=== PATIENT | male | born 1990 | race Caucasian/White ===

== ENCOUNTER 2017-06-11 14:24 | Observation (INO) | payer OTHER ==
[2017-06-11 14:35] VITALS: BMI 25.0
[2017-06-11] MEDS ORDERED: ONDANSETRON 4 MG/2 ML VIAL IVPUSH ONE ×2 (14:55→15:08)
[2017-06-11] MEDS ORDERED: ONDANSETRON 4 MG/2 ML VIAL ONE (14:56)
[2017-06-11] MEDS ORDERED: SODIUM CHLORIDE 0.9% 1000 ML INFUS.BAG IV ONE (15:08)
--- NOTE | 2017-06-11 15:18 | PDOC ---
History of Present Illness - General Chief Complaint: Lightheaded Stated Complaint: VOMITING/DIARRHEA Time Seen by Provider: 06/11/17 14:41 History Source: Patient Exam Limitations: No Limitations - History of Present Illness Initial Comments: 06/11/17 15:21 The patient is a 26M with a PMH of ESRD on dialysis (just finished dialysis this morning at 4am) who is complaining of weakness, dizziness, nausea, vomiting, and diarrhea. His weakness and dizziness started after dialysis at 4 am. His nausea, vomiting, and diarrhea started at 10am this morning. He described the dizziness as lightheadedness and not vertiginous. He is also complaining of numbness in his legs. He admits to having anxiety which may be worsening his present illness. No sick contacts, no recent travel. Soc: does not smoke, drink, or use drugs All: none Extras Casting Director: Coretta Sullivan MD Past History - Past Medical History Allergies/Adverse Reactions: Allergies Allergy/AdvReac Type Severity Reaction Status Date / Time No Known Allergies Allergy Verified 06/11/17 14:32 Home Medications: Ambulatory Orders Albuterol Sulfate Inhaler - [Ventolin HFA Inhaler -] 1 - 2 inh PO ASDIR Sevelamer Carbonate [Renvela -] 800 mg PO ASDIR 03/22/15 Omeprazole [Prilosec (RX)] 20 mg PO DAILY #30 capsule 05/06/15 Amlodipine Besylate 10 mg PO DAILY 06/11/17 Asthma: Yes Dialysis: Yes () Disorders: Yes (esrd) HTN: Yes Suicide Attempt (Hx): No - Surgical History Abdominal Surgery: Yes (BLADDER SX A CHILD) - Immunization History Immunization Up to Date: Yes - Psycho/Social/Smoking Cessation Hx Anxiety: No Suicidal Ideation: No Smoking Status: No Smoking History: Never smoked Have you smoked in the past 12 months: No Number of Cigarettes Smoked Daily: 0 Cigars Per Day: 0 Hx Alcohol Use: No Drug/Substance Use Hx: No Substance Use Type: None Review of Systems - Review of Systems Able to Perform ROS?: Yes Is the patient limited Wolof proficient: No Constitutional: Yes: Chills. No: Fever HEENTM: No: Blurred Vision Respiratory: Yes: Shortness of Breath. No: Cough Cardiac (ROS): Yes: Lightheadedness. No: Chest Pain ABD/GI: No: Other (abd pain) Neurological: Yes: Tingling (in legs b/l). No: Numbness, Weakness *Physical Exam - Vital Signs Last Vital Signs Temp Pulse Resp BP Pulse Ox 98.5 F 106 H 19 138/78 100 06/11/17 14:32 06/11/17 14:32 06/11/17 14:32 06/11/17 14:32 06/11/17 14:32 - Physical Exam General Appearance: Yes: Nourished, Appropriately Dressed HEENT: positive: Normal Voice, Hearing Grossly Normal Respiratory/Chest: positive: Lungs Clear, Normal Breath Sounds. negative: Chest Tender, Respiratory Distress, Accessory Muscle Use, Labored Respiration, Rapid RR, Paradoxal Breathing, Crackles, Rales, Rhonchi Cardiovascular: positive: Regular Rhythm, Regular Rate, S1, S2. negative: Diastolic Murmur, Systolic Murmur Gastrointestinal/Abdominal: positive: Tender (Tenderness to deep palpation over LUQ ), Flat, Soft. negative: Distended, Guarding, Rebound, Mass Musculoskeletal: negative: CVA Tenderness, CVA Tenderness (R), CVA Tenderness (L ) Integumentary: positive: Dry, Warm. negative: Pale, Cold, Clammy, Diaphoresis Neurologic: positive: dental surgeon II-XII NML intact, Fully Oriented, Alert, Normal Mood/ Affect, Normal Response, Motor Strength 5/5, Respond to painful stimul, Responsive. negative: Abnormal Cranial NS, EOM Palsy, Facial Droop, Numbness, Sensory Deficit, Confused, Disoriented, Depressed Affect Heart Score/ECG Review - ECG Impressions Comment:: 06/11/17 15:27 NSR. Peaked t waves. Improved from EKG on march 22, 2015. ED Treatment Course - LABORATORY CBC & Chemistry Diagram: 06/12/17 05:48 06/12/17 05:48 Medical Decision Making - Medical Decision Making 06/11/17 16:50 The patient is a 26M with a PMH of ESRD on dialysis, HTN, and asthma who presented with GI symptoms and weakness. I have ordered basic labs. K was 6.1. I gave him calcium gluconate, insulin, and dextrose and IVF. On reassessment he states he is feeling "a little better". 06/11/17 19:14 Repeat K is 4.7. Reassessment shows that the patient is able to ambulate and is feeling better. Will discuss with hospitalist for obs. 06/11/17 19:27 Patient signed out to night team. *DC/Admit/Observation/Transfer Diagnosis at time of Disposition: History of hyperkalemia, ESRD (end stage renal disease) Nausea & vomiting Qualifiers: Vomiting type: unspecified Vomiting Intractability: non-intractable Qualified Code(s): R11.2 - Nausea with vomiting, unspecified - Discharge Dispostion Disposition: HOME Condition at time of disposition: Stable
[2017-06-11 15:45] LABS: ALBUMIN 4.4 g/dl (3.4-5.0); ANION GAP 11 (8-16); CALCIUM 9.5 mg/dL (8.5-10.1); CO2 26 mmol/L (21-32); CREATININE 7.3 mg/dL (0.7-1.3); GLUCOSE,RANDOM 93 mg/dL (74-106); SGOT/AST 11 U/L (15-37); SGPT/ALT 19 U/L (12-78)
[2017-06-11 15:47] LABS: ALK PHOS 141 U/L (45-117); BILIRUBIN,TOTAL 0.7 mg/dL (0.2-1.0); TOT PROT 8.1 g/dl (6.4-8.2)
[2017-06-11 15:50] LABS: BASOPHIL 0.3 % (0-2.0); EOSINOPHIL 3.6 % (0-4.5); MCH 31.2 pg (25.7-33.7); MCHC 33.8 g/dl (32.0-35.9); MEAN CELL VOLUME 92.3 fl (80-96); MEAN PLT VOLUME 9.2 fl (7.5-11.1); NEUTROPHILS 87.5 % (42.8-82.8); PLATELET COUNT 180 K/MM3 (134-434); RDW 13.7 % (11.9-15.9); WHITE BLOOD COUNT 12.9 K/mm3 (4.0-10.0)
[2017-06-11] MEDS ORDERED: CALCIUM GLUCONATE 10% - 1,000 MG/10 ML VIAL IVPB ONE (15:50)
[2017-06-11] MEDS ORDERED: DEXTROSE 50%-WATER - 25 GM/50 ML VIAL IVPUSH ONE (16:06)
[2017-06-11] MEDS ORDERED: INSULIN REGULAR HUMAN 100 UNITS/ML *VIAL IVPUSH ONE (16:07)
[2017-06-11] MEDS ORDERED: SODIUM BICARBONATE 8.4% 50 MEQ/50 ML DISP.SYRIN IVPUSH ONE (16:08)
[2017-06-11] MEDS ORDERED: CALCIUM GLUCONATE 10% - 1,000 MG/10 ML VIAL ONE (16:21)
[2017-06-11] MEDS ORDERED: SODIUM BICARBONATE 8.4% - 50 ML ONE (16:21)
[2017-06-11] MEDS ORDERED: INSULIN REGULAR HUMAN 100 UNITS/ML *VIAL ONE (16:21)
[2017-06-11] MEDS ORDERED: DEXTROSE 50%-WATER 50 ML DISP.SYRIN ONE ×2 (16:21→16:23)
[2017-06-11 18:38] LABS: ALBUMIN 3.8 g/dl (3.4-5.0); ANION GAP 9 (8-16); BILIRUBIN,TOTAL 0.6 mg/dL (0.2-1.0); CALCIUM 9.7 mg/dL (8.5-10.1); CO2 27 mmol/L (21-32); GLUCOSE,RANDOM 71 mg/dL (74-106); SGOT/AST 7 U/L (15-37); SGPT/ALT 18 U/L (12-78); TOT PROT 7.2 g/dl (6.4-8.2)
[2017-06-11 18:43] LABS: ALK PHOS 119 U/L (45-117); CREATININE 7.4 mg/dL (0.7-1.3)
--- NOTE | 2017-06-11 19:04 | PDOC ---
Attending Attestation - Resident Resident Name: DarylmonroechristelMario - ED Attending Attestation I have performed the following: I have examined & evaluated the patient, The case was reviewed & discussed with the resident, I agree w/resident's findings & plan, Exceptions are as noted - HPI HPI: 06/11/17 19:04 26yo M hx ESRD (HD MWF) p/w nausea, vomiting, and diarrhea since this afternoon. Pt had a full session of HD this morning with no complications and began to feel lightheaded when he got home. He reports multiple episodes of concurrent vomiting and diarrhea. Also reports cramping in LE that he frequently gets after HD. Denies fevers. Denies CP, SOB, abd pain, headache, focal weakness or numbness. - Physicial Exam PE: 06/11/17 19:03 GENERAL: Awake, alert, and fully oriented, in no acute distress HEAD: No signs of trauma EYES: PERRLA, EOMI, sclera anicteric, conjunctiva clear ENT: Auricles normal inspection, hearing grossly normal, nares patent, oropharynx clear without exudates. dry MM NECK: Normal ROM, supple, no lymphadenopathy, JVD, or masses LUNGS: Breath sounds equal, clear to auscultation bilaterally. No wheezes, and no crackles HEART: tachy 106, normal S1 and S2, no murmurs, rubs or gallops ABDOMEN: Soft, nontender, normoactive bowel sounds. No guarding, no rebound. No masses EXTREMITIES: Normal range of motion, no edema. No clubbing or cyanosis. No cords, erythema, or tenderness NEUROLOGICAL: Normal speech, cranial nerves intact, negative pronator drift, 5/ 5 strength in all 4 extremities, normal sensation to light touch in all 4 extremities, normal cerebellar exam, normal gait, normal reflexes and tone SKIN: Warm, Dry, normal turgor, no rashes or lesions noted. - Medical Decision Making 06/11/17 16:09 26yo M hx ESRD p/w N/V/D and lightheadness since this morning. Pt tachycardic on arrival and exam with dry MM. Presentation c/f dehydration, with possible electrolyte abnormalities in the setting of a GI viral illness. -antiemetics -IVF -labs -reassess 06/11/17 16:26 Pt found to be hyperkalemic to 6.1 despite full session of HD in the morning. Pt given bicarb, calcium, dextrose, and insulin. Will repeat BMP and admit for obs as it is unclear why pt is hyperkalemic despite compliance with HD.
--- NOTE | 2017-06-11 19:46 | PDOC ---
*Physical Exam - Vital Signs Last Vital Signs Temp Pulse Resp BP Pulse Ox 98.5 F 99 H 20 149/85 100 06/11/17 14:32 06/11/17 16:50 06/11/17 16:50 06/11/17 16:50 06/11/17 16:50 06/11/17 19:38 Care of this patient was transferred to [facility] from Dr. Siddiqi at 1900 hrs. He was seen by Dr. Siddiqi in conjunction with the resident. Patient is a hemodialysis patient and having [facility] he developed nausea vomiting diarrhea came in for the symptoms. He was found to have an elevated potassium of 6.1. He was given treatment for his potassium bicarbonate, insulin, dextrose and fluid. A repeat potassium was 4.7. Patient is without further nausea vomiting and diarrhea here in the emergency room however a overnight observation and treatment potassium was rising and he would benefit from additional observation to make sure he is able to tolerate by mouth's and has no further diarrhea for tomorrow. I discussed with the admitting resident and as well evaluating patient in the ER for overnight observation status. ED Treatment Course - LABORATORY CBC & Chemistry Diagram: 06/11/17 15:15 06/11/17 18:00 - ADDITIONAL ORDERS Additional order review: Laboratory Results 06/11/17 06/11/17 06/11/17 18:21 18:00 15:15 Sodium 139 135 L Potassium 4.7 D 6.1 H* D Chloride 103 98 Carbon Dioxide 27 26 Anion Gap 9 11 BUN 32 H 28 H D Creatinine 7.4 H 7.3 H D Creat Clearance w eGFR 9.04 9.18 POC Glucometer 82.30248 Random Glucose 71 L D 93 Calcium 9.7 9.5 Total Bilirubin 0.6 0.7 D AST 7 L D 11 L D ALT 18 19 Alkaline Phosphatase 119 H 141 H D Total Protein 7.2 8.1 Albumin 3.8 4.4 06/11/17 06/11/17 18:21 15:15 RBC 4.71 D MCV 92.3 MCHC 33.8 RDW 13.7 MPV 9.2 Neutrophils % 87.5 H D Lymphocytes % 3.6 L D Monocytes % 5.0 Eosinophils % 3.6 Basophils % 0.3 POC Glucometer 82.01544 - Medications Given in the ED: ED Medications Discontinued Medications Generic Name Dose Route Start Last Admin Trade Name Freq PRN Reason Stop Dose Admin Calcium Gluconate 1,000 mg 06/11/17 15:50 06/11/17 16:42 Calcium Gluconate 10% - IVPB 06/11/17 15:51 1,000 mg ONCE ONE Administration Dextrose 50 gm 06/11/17 16:06 06/11/17 16:41 D50w (Vial) - IVPUSH 06/11/17 16:07 50 gm NOW ONE Administration Insulin Human Regular 5 units 06/11/17 16:07 06/11/17 16:41 Novolin R Vial *For Ivpush Or Iv Drip Only* IVPUSH 06/11/17 16:08 5 unit ONCE ONE Administration Ondansetron HCl 4 mg 06/11/17 14:55 06/11/17 15:10 Zofran Injection IVPUSH 06/11/17 14:56 4 mg ONCE ONE Administration Ondansetron HCl 4 mg 06/11/17 15:08 06/11/17 16:52 Zofran Injection IVPUSH 06/11/17 15:09 Not Given ONCE ONE Sodium Bicarbonate 50 meq 06/11/17 16:08 06/11/17 16:42 Sodium Bicarbonate 8.4% - IVPUSH 06/11/17 16:09 50 meq ONCE ONE Administration Sodium Chloride 500 ml 06/11/17 15:08 06/11/17 15:15 Normal Saline - IV 06/11/17 15:09 500 ml ONCE ONE Administration *DC/Admit/Observation/Transfer Diagnosis at time of Disposition: History of hyperkalemia, End-stage renal disease Nausea and vomiting Qualifiers: Vomiting type: unspecified Vomiting Intractability: non-intractable Qualified Code(s): R11.2 - Nausea with vomiting, unspecified - Discharge Dispostion Admit: Yes
[2017-06-11 20:06] LABS: URINE APPEARANCE CLEAR; URINE BILIRUBIN NEGATIVE (NEGATIVE); URINE BLOOD NEGATIVE (NEGATIVE); URINE COLOR STRAW; URINE GLUCOSE (UA) 3+ (NEGATIVE); URINE KETONE NEGATIVE (NEGATIVE); URINE LEUK ESTERASE NEGATIVE (NEGATIVE); URINE NITRITE NEGATIVE (NEGATIVE); URINE UROBILINOGEN NEGATIVE mg/dL (0.2-1.0)
[2017-06-11 20:19] LABS: URINE PROTEIN 2+ (NEGATIVE)
[2017-06-11 20:38] LABS: URINE BACTERIA RARE /hpf (NONE SEEN); URINE RBC <1 /hpf (0-3); URINE WBC 1 /hpf (3-5)
--- NOTE | 2017-06-11 20:58 | HP ---
CHIEF COMPLAINT: Nausea, Diarrhea PCP: None Organizational Development Consultant: Coretta Kauffman HISTORY OF PRESENT ILLNESS: Patient is a 26 year old male with a history of ESRD (Dialysis since 2010), Asthma, and HTN presented to the ED because of Nausea and diarrhea he experienced at 4am earlier that morning post-dialysis. He said he went home from dialysis nauseas and weak and went to sleep. Around 9am he woke up and felt rumbling in his abdomen and weakness. Nothing made it worse and nothing made it better. He then vomited pink brown emesis and had dark brown diarrhea right after. He says he experienced these symptoms before after having dialysis years ago. He also complained of a dry cough and shortness of breath that began after dialysis. He does not relate the cough and SOB to his asthma. Patient denies headache, fevers, rash, urinary symptoms, decreased appetite and weight loss. ER course was notable for: (1) EKG- peaked T waves (2) X-Ray: unremarkable Recent Travel: None PAST MEDICAL HISTORY: Asthma, HTN, ESRD (started dialysis 2010) PAST SURGICAL HISTORY: AV Fistula in left hand Social History: Smoking: Denies Alcohol: Denies Drugs: Denies Family History: N/A Allergies No Known Allergies Allergy (Verified 06/11/17 14:32) HOME MEDICATIONS: Home Medications Medication Instructions Recorded Albuterol Sulfate Inhaler - 1 - 2 inh PO ASDIR 01/31/14 [Ventolin HFA Inhaler -] Sevelamer Carbonate [Renvela] 800 mg PO ASDIR 03/22/15 Omeprazole [Prilosec (RX)] 20 mg PO DAILY #30 capsule 05/06/15 Amlodipine Besylate 10 mg PO DAILY 06/11/17 REVIEW OF SYSTEMS CONSTITUTIONAL: Absent: fever, chills, diaphoresis, generalized weakness, malaise, loss of appetite, weight change HEENT: Absent: rhinorrhea, nasal congestion, throat pain, throat swelling, difficulty swallowing, mouth swelling, ear pain, eye pain, visual changes CARDIOVASCULAR: Absent: chest pain, syncope, palpitations, irregular heart rate, lightheadedness , peripheral edema RESPIRATORY: Absent: cough, shortness of breath, dyspnea with exertion, orthopnea, wheezing, stridor, hemoptysis GASTROINTESTINAL: nausea, vomiting, diarrhea Absent: abdominal pain, abdominal distension, constipation, melena, hematochezia GENITOURINARY: Absent: dysuria, frequency, urgency, hesitancy, hematuria, flank pain, genital pain MUSCULOSKELETAL: Absent: myalgia, arthralgia, joint swelling, back pain, neck pain SKIN: Absent: rash, itching, pallor HEMATOLOGIC/IMMUNOLOGIC: Absent: easy bleeding, easy bruising, lymphadenopathy, frequent infections ENDOCRINE: Absent: unexplained weight gain, unexplained weight loss, heat intolerance, cold intolerance NEUROLOGIC: Absent: headache, focal weakness or paresthesias, dizziness, unsteady gait, seizure, mental status changes, bladder or bowel incontinence PSYCHIATRIC: Absent: anxiety, depression, suicidal or homicidal ideation, hallucinations. PHYSICAL EXAMINATION Vital Signs - 24 hr 06/11/17 06/11/17 14:32 16:50 Temperature 98.5 F Pulse Rate 106 H Pulse Rate [ 99 H Left Radial] Respiratory 19 20 Rate Blood Pressure 138/78 Blood Pressure 149/85 [Right Arm] O2 Sat by Pulse 100 100 Oximetry (%) GENERAL: Awake, alert, and fully oriented, in no acute distress. HEAD: Normal with no signs of trauma. EYES: Pupils equal, round and reactive to light, extraocular movements intact, sclera anicteric, conjunctiva clear. EARS, NOSE, THROAT: oropharynx clear without exudates. Moist mucous membranes. NECK: Normal range of motion, supple without lymphadenopathy, JVD, or masses. LUNGS: Breath sounds equal, clear to auscultation bilaterally. No wheezes, and no crackles. HEART: Regular rate and rhythm, normal S1 and S2 without murmur, rub or gallop. ABDOMEN: Soft, isabella-umbical tenderness to palpation, not distended, normoactive bowel sounds, no guarding, no rebound, no masses. No hepatomegaly or splenomegaly. Transverse scar on lower abdomen from surgery. MUSCULOSKELETAL: Normal range of motion at all joints. No bony deformities or tenderness. No CVA tenderness. UPPER EXTREMITIES: left hand AV fistula: no bruits, 2+ pulses, warm, well- perfused. No cyanosis. No clubbing. No peripheral edema. LOWER EXTREMITIES: 2+ pulses, warm, well-perfused. No calf tenderness. No peripheral edema. PSYCHIATRIC: Cooperative. Good eye contact. Appropriate mood and affect. SKIN: Warm, dry, normal turgor, no rashes or lesions noted, normal capillary refill. Laboratory Results - last 24 hr 06/11/17 06/11/17 06/11/17 15:15 15:15 18:00 WBC 12.9 H D RBC 4.71 D Hgb 14.7 D Hct 43.4 D MCV 92.3 MCH 31.2 MCHC 33.8 RDW 13.7 Plt Count 180 D MPV 9.2 Neutrophils % 87.5 H D Lymphocytes % 3.6 L D Monocytes % 5.0 Eosinophils % 3.6 Basophils % 0.3 Sodium 135 L 139 Potassium 6.1 H* D 4.7 D Chloride 98 103 Carbon Dioxide 26 27 Anion Gap 11 9 BUN 28 H D 32 H Creatinine 7.3 H D 7.4 H Creat Clearance w eGFR 9.18 9.04 POC Glucometer Random Glucose 93 71 L D Calcium 9.5 9.7 Total Bilirubin 0.7 D 0.6 AST 11 L D 7 L D ALT 19 18 Alkaline Phosphatase 141 H D 119 H Total Protein 8.1 7.2 Albumin 4.4 3.8 Urine Color Urine Appearance Urine pH Urine Protein Urine Glucose (UA) Urine Ketones Urine Blood Urine Nitrite Urine Bilirubin Urine Urobilinogen 06/11/17 06/11/17 18:21 19:50 WBC RBC Hgb Hct MCV MCH MCHC RDW Plt Count MPV Neutrophils % Lymphocytes % Monocytes % Eosinophils % Basophils % Sodium Potassium Chloride Carbon Dioxide Anion Gap BUN Creatinine Creat Clearance w eGFR POC Glucometer 82.73664 Random Glucose Calcium Total Bilirubin AST ALT Alkaline Phosphatase Total Protein Albumin Urine Color Straw Urine Appearance Clear Urine pH 9.0 H Urine Protein 2+ H Urine Glucose (UA) 3+ H Urine Ketones Negative Urine Blood Negative Urine Nitrite Negative Urine Bilirubin Negative Urine Urobilinogen Negative Chest X Ray: Unremarkable. No evidence of acute lung disease. ASSESSMENT/PLAN: Patient is a 26 year old male with a history of ESRD (Dialysis since 2010), Asthma, and HTN presented to the ED because of Nausea and diarrhea and was found to have Hyperkalemia (6.1) #Hyperkalemia secondary to ESRD -On Dialysis, Tuesdays , Saturdays -BUN 32, Creatinine 7.4 -Patient does not know his baseline creatinine, old charts shows history of 7.8 creatinine -Peaked T waves on EKG (no significant change from last one in February) -In ER : Given D50, Insulin 10UNITs, Calcium gluconate & Sodium Barcarb -Potassium improved. 6.1---> 4.7 -BMP ordered for tonight and AM -Will f/U labs in the morning. -Tele for cardiac monitoring -On Dialysis, Tuesdays , Saturdays -BUN 32, Creatinine 7.4 -Patient does not know his baseline creatinine, old charts shows history of 7.8 creatinine #HTN -Continue Amplodipine 10mg #History of Asthma -Albuterol PRN, will order if needed FEN: -No fluids at this time -Hyperkalemia, currently WNL, will continue to monitor -Renal Diet DVT PPX: -Early Ambulation Visit type - Emergency Visit Emergency Visit: Yes ED Registration Date: 06/11/17 Care time: The patient presented to the Emergency Department on the above date and was hospitalized for further evaluation of their emergent condition. - New Patient This patient is new to me today: Yes Date on this admission: 06/12/17 - Critical Care Critical Care patient: No
[2017-06-11 21:58] LABS: ANION GAP 10 (8-16); CO2 26 mmol/L (21-32); GLUCOSE,RANDOM 123 mg/dL (74-106)
[2017-06-11 22:04] LABS: CREATININE 8.2 mg/dL (0.7-1.3)
--- NOTE | 2017-06-12 00:49 | PN ---
Teaching Attending Note Name of Resident: Akosua Albarran ATTENDING PHYSICIAN STATEMENT I saw and evaluated the patient. I reviewed the resident's note and discussed the case with the resident. I agree with the resident's findings and plan as documented. SUBJECTIVE: 26 y/o M presented to ED c/o nausea an diarrhea after hemodialysis, also c/o cough and SOB after HD. Denies fever, chills, headache, chest pain or palpitations. OBJECTIVE: On examination, A&Ox3 in NAD. HEENT:PERRLA, EOMI, MMM Lungs CTA CVS: RRR, S1,S2 Abd: Soft, NT, ND, BS+, no organomegaly Ext: Left AV fistula CBCD WBC 12.9 K/mm3 (4.0-10.0) H D 06/11/17 15:15 RBC 4.71 M/mm3 (4.00-5.60) D 06/11/17 15:15 Hgb 14.7 GM/dL (11.7-16.9) D 06/11/17 15:15 Hct 43.4 % (35.4-49) D 06/11/17 15:15 MCV 92.3 fl (80-96) 06/11/17 15:15 MCHC 33.8 g/dl (32.0-35.9) 06/11/17 15:15 RDW 13.7 % (11.9-15.9) 06/11/17 15:15 Plt Count 180 K/MM3 (134-434) D 06/11/17 15:15 MPV 9.2 fl (7.5-11.1) 06/11/17 15:15 CMP Sodium 137 mmol/L (136-145) 06/11/17 21:17 Potassium 4.8 mmol/L (3.5-5.1) 06/11/17 21:17 Chloride 101 mmol/L (98-107) 06/11/17 21:17 Carbon Dioxide 26 mmol/L (21-32) 06/11/17 21:17 Anion Gap 10 (8-16) 06/11/17 21:17 BUN 34 mg/dL (7-18) H 06/11/17 21:17 Creatinine 8.2 mg/dL (0.7-1.3) H* 06/11/17 21:17 Creat Clearance w eGFR 9.04 (>60) 06/11/17 18:00 Random Glucose 123 mg/dL (74-106) H D 06/11/17 21:17 Calcium 9.0 mg/dL (8.5-10.1) 06/11/17 21:17 Total Bilirubin 0.6 mg/dL (0.2-1.0) 06/11/17 18:00 AST 7 U/L (15-37) L D 06/11/17 18:00 ALT 18 U/L (12-78) 06/11/17 18:00 Alkaline Phosphatase 119 U/L (45-117) H 06/11/17 18:00 Total Protein 7.2 g/dl (6.4-8.2) 06/11/17 18:00 Albumin 3.8 g/dl (3.4-5.0) 06/11/17 18:00 ASSESSMENT AND PLAN: Hyperkalemia, ESRD with EKG changes- hyperkalemia cocktail given Repeat BMP in am joy operator
[2017-06-12] MEDS ORDERED: SODIUM CHLORIDE 1,000 ML IV SCH (05:15)
[2017-06-12 06:20] VITALS: TEMP 97.5
[2017-06-12 07:58] LABS: ANION GAP 13 (8-16); CALCIUM 9.1 mg/dL (8.5-10.1); CO2 24 mmol/L (21-32); GLUCOSE,RANDOM 84 mg/dL (74-106); MAGNESIUM 2.1 mg/dL (1.8-2.4); PHOSPHOROUS 5.9 mg/dL (2.5-4.9)
[2017-06-12] MEDS: SEVELAMER CARBONATE 800 MG TAB (FP) PO SCH ×2 (08:14→12:50)
[2017-06-12 08:33] LABS: MCH 31.5 pg (25.7-33.7); MCHC 34.2 g/dl (32.0-35.9); MEAN CELL VOLUME 92.2 fl (80-96); MEAN PLT VOLUME 9.4 fl (7.5-11.1); PLATELET COUNT 143 K/MM3 (134-434); RDW 13.6 % (11.9-15.9); WHITE BLOOD COUNT 6.1 K/mm3 (4.0-10.0)
[2017-06-12 09:10] LABS: CREATININE 9.3 mg/dL (0.7-1.3)
[2017-06-12] MEDS ORDERED: amLODIPine BESYLATE 10 MG TABLET (FP) PO SCH (10:00)
[2017-06-12] MEDS ORDERED: FLU VACCINE QUAD 60 MCG/0.5 ML (MDV 17-18) IM ONE (11:00)
[2017-06-12 11:04] LABS: CPK 85 IU/L (39-308); TROPONIN I < 0.02 ng/ml (0.00-0.05)
--- NOTE | 2017-06-12 11:49 | DS ---
Physical Exam: SUBJECTIVE: Patient seen and examined. He denies further vomiting, he did have some watery brown stool this AM. He tolerated breakfast without issue. Said he ate rice, beans and porkchop which he rarely eats. OBJECTIVE: Vital Signs Period Temp Pulse Resp BP Sys/Hazel Pulse Ox Last 24 Hr 97.5 F-98.5 F 73-100 18-20 100-143/45-82 97-98 PE Neuro: alert, awake, cn 2-12 intact Pulm: CTAB CV: s1 s2 rrr no mrg Abd: s nt nd + bs Ext: LUE AVF + thrill, no le edema Laboratory Results - last 24 hr 06/11/17 06/12/17 06/12/17 21:17 05:48 05:48 WBC RBC Hgb Hct MCV MCH MCHC RDW Plt Count MPV Sodium 137 136 Potassium 4.8 5.2 H Chloride 101 99 Carbon Dioxide 26 24 Anion Gap 10 13 BUN 34 H 44 H D Creatinine 8.2 H* 9.3 H* Random Glucose 123 H D 84 D Calcium 9.0 9.1 Phosphorus 5.9 H Magnesium 2.1 D Creatine Kinase 85 Cancelled Troponin I < 0.02 Cancelled 06/12/17 05:48 WBC 6.1 D RBC 3.79 L Hgb 11.9 D Hct 35.0 L D MCV 92.2 MCH 31.5 MCHC 34.2 RDW 13.6 Plt Count 143 D MPV 9.4 Sodium Potassium Chloride Carbon Dioxide Anion Gap BUN Creatinine Random Glucose Calcium Phosphorus Magnesium Creatine Kinase Troponin I HOSPITAL COURSE: Date of Admission:06/11/17 Date of Discharge: 06/12/17 Minutes to complete discharge: 37 Discharge Summary Reason For Visit: HISTORY OF HYPERKALEMIA NAUSEA AND VOMITING END Current Active Problems ESRD (end stage renal disease) (Acute) History of hyperkalemia (Acute) Nausea & vomiting (Acute) Hospital Course: Initial Hospital Course: 26 year old male with a history of ESRD (Dialysis since 2010, T nocturnal schedule 9-4am), Asthma, and HTN presented with nausea and diarrhea he experienced at 4am post-dialysis. He said he went home from dialysis nauseas and weak and went to sleep. Around 9am he woke up and felt rumbling in his abdomen and weakness. Nothing made it worse and nothing made it better. Later, he vomited pink brown emesis and had dark brown diarrhea right after. One year ago he experienced the same symptoms post HD. Subsequent Hospital Course/Discharge Summary by plan: Plan: 1. Acute gastritis - Improved, no further nausea, vomiting, abdominal pain 2. Hyperkalemia - Improved with hyperkalemia cocktail - Pt denies drinking OJ, says it gives him anxiety - He ate rice, beans, and porkchop - Discussed with top installer Dr. Patiño, he will resume his HD tonight as scheduled from 9pm-4am - Repeat EKG peaked T's improved 3. ESRD on chronic HD - HD T TH Sat - Next HD tonight as outpt 4. HTN - Stable - Amplodipine 10mg 5. Asthma - No in exacerbation Dispo: - Home with plan above - Follow up with renal next week - Pt aware and agrees to above plan Condition: Stable - Instructions Diet, Activity, Other Instructions: Please return to the ED for any new, persistent, or worsening symptoms. Follow up with your PCP in 1 week Continue regularly scheduled HD, next session today at 9pm Resume home medication as directed Keep away from foods with high potassium Referrals: Faye Patiño MD [Staff Physician] - Disposition: HOME - Home Medications Comprehensive Discharge Medication List: Ambulatory Orders Albuterol Sulfate Inhaler - [Ventolin HFA Inhaler -] 1 - 2 inh PO ASDIR Sevelamer Carbonate [Renvela -] 800 mg PO ASDIR 03/22/15 Omeprazole [Prilosec (RX)] 20 mg PO DAILY #30 capsule 05/06/15 Amlodipine Besylate 10 mg PO DAILY 06/11/17 This patient is new to me today: Yes Date on this admission: 06/12/17 Emergency Visit: Yes ED Registration Date: 06/11/17 Care time: The patient presented to the Emergency Department on the above date and was hospitalized for further evaluation of their emergent condition. Critical Care patient: No - Discharge Referral Referred to [facility] Med P.C.: No
[2017-06-12 12:08] VITALS: BP 126/72; PULSE 70
--- NOTE | 2017-06-14 16:43 | EKG ---
Test Reason : Blood Pressure : / mmHG Vent. Rate : 073 BPM Atrial Rate : 073 BPM P-R Int : 190 ms QRS Dur : 080 ms QT Int : 352 ms P-R-T Axes : 058 044 015 degrees QTc Int : 387 ms NORMAL SINUS RHYTHM NORMAL ECG WHEN COMPARED WITH ECG OF 11-JUN-2017 15:22, T WAVE VARIATION Confirmed by RIKA FINLEY MD ([id number]) on 06/14/2017 4:42:57 PM Referred By: KOFFI CLAROS Confirmed By:RIKA FINLEY MD
--- NOTE | 2017-06-14 16:57 | EKG ---
Test Reason : Blood Pressure : / mmHG Vent. Rate : 087 BPM Atrial Rate : 087 BPM P-R Int : 148 ms QRS Dur : 076 ms QT Int : 326 ms P-R-T Axes : 070 041 050 degrees QTc Int : 392 ms NORMAL SINUS RHYTHM POSSIBLE LEFT ATRIAL ENLARGEMENT BORDERLINE ECG WHEN COMPARED WITH ECG OF 22-MAR-2015 07:14, NO SIGNIFICANT CHANGE WAS FOUND Confirmed by RIKA FINLEY MD ([id number]) on 06/14/2017 4:57:34 PM Referred By: Confirmed By:RIKA FINLEY MD
== END 2017-06-12 13:21 | disposition home or self-care (01) ==
LOC: JER 14:24 → JERBED 19:50 → J4W 22:31
PROVIDERS: ADMIT Internal Medicine; ATTEND Nurse Practitioner Acute Care
PROC: 3E033VG Introduction of Insulin into Peripheral Vein, Percutaneous Approach (ICD-10-PCS; principal; 2017-06-11)
PROC: 3E033GC Introduction of Other Therapeutic Substance into Peripheral Vein, Percutaneous Approach (ICD-10-PCS; 2017-06-11)
PROC: 3E033GC Introduction of Other Therapeutic Substance into Peripheral Vein, Percutaneous Approach (ICD-10-PCS; 2017-06-11)
PROC: 3E0337Z Introduction of Electrolytic and Water Balance Substance into Peripheral Vein, Percutaneous Approach (ICD-10-PCS; 2017-06-11)
DX: K29.00 Acute gastritis without bleeding (principal); E87.5 Hyperkalemia; I12.0 Hypertensive chronic kidney disease with stage 5 chronic kidney disease or end stage renal disease; N18.6 End stage renal disease; N17.8 Other acute kidney failure; Z99.2 Dependence on renal dialysis; F41.9 Anxiety disorder, unspecified
CPT/HCPCS: 36415; 71020-TC; 80048; 80053; 81003; 81015; 83735; 84100; 84484; 85025; 85027; 93005; 93010; 99285-25; G0378

== ENCOUNTER 2018-08-21 13:37 | Emergency (ER) | payer OTHER ==
[2018-08-21] MEDS ORDERED: ALBUTEROL SO4 2.5/IPRATROPIUM 0.5 INH SOL 3 ML VIAL.NEB. NEB ONE ×2 (13:46→14:13)
[2018-08-21 13:55] VITALS: BP 136/82; PULSE 82; TEMP 98.7; BMI 25.0
--- NOTE | 2018-08-21 14:12 | PDOC ---
History of Present Illness - General Chief Complaint: Asthma Stated Complaint: ASTHMA Time Seen by Provider: 08/21/18 13:56 History Source: Patient Exam Limitations: No Limitations - History of Present Illness Initial Comments: 08/21/18 14:06 Patient states came as second visit in 24 hours to emergency department for evaluation of remittent asthma exacerbation. States doesn't have much trouble with his asthma any longer however once he year, approximately this time developed some bronchitis and asthmatic reactions. Has albuterol inhaler at home which she used it felt was becoming tighter. Yesterday was seen in another emergency department, given 2 treatments which improved him. However developed worsening wheezing last night therefore causing him to come to ER today. Denies fever, phlegm production, earache or sore throat pain. Timing/Duration: reports: intermittent Severity: reports: mild Modifying Factors: improves with: albuterol inhaler Associated Symptoms: reports: cough, fever/chills, nasal congestion, wheezing Past History - Travel Traveled outside of the country in the last 30 days: No Close contact w/someone who was outside of country & ill: No - Past Medical History Allergies/Adverse Reactions: Allergies Allergy/AdvReac Type Severity Reaction Status Date / Time No Known Allergies Allergy Verified 08/21/18 13:40 Home Medications: Ambulatory Orders Albuterol Sulfate Inhaler - [Ventolin HFA Inhaler -] 1 - 2 inh PO ASDIR Sevelamer Carbonate [Renvela -] 800 mg PO ASDIR 03/22/15 Amlodipine Besylate 10 mg PO DAILY 06/11/17 Albuterol 0.083% Nebulizer Meghna [Ventolin 0.083% Nebulizer Soln -] 1 neb NEB Q4H PRN #30 vial 08/21/18 Mycophenolate Sodium [Myfortic] 360 mg PO BID 08/21/18 Sodium Bicarbonate - 650 mg PO BID 08/21/18 Tacrolimus [Prograf] 6 mg PO DAILY 08/21/18 Asthma: Yes COPD: No Dialysis: Yes () Disorders: Yes (esrd) HTN: Yes - Surgical History Abdominal Surgery: Yes (BLADDER SX A CHILD) - Immunization History Immunization Up to Date: Yes - Suicide/Smoking/Psychosocial Hx Smoking Status: No Smoking History: Never smoked Have you smoked in the past 12 months: No Number of Cigarettes Smoked Daily: 0 Cigars Per Day: 0 Hx Alcohol Use: No Drug/Substance Use Hx: No Substance Use Type: None Review of Systems - Review of Systems Able to Perform ROS?: Yes Is the patient limited [place]ian proficient: Yes Constitutional: Yes: Symptoms Reported, See HPI, Chills, Fever, Malaise HEENTM: Yes: Symptoms Reported, See HPI, Nose Congestion, Throat Pain Respiratory: Yes: Symptoms reported, See HPI, Cough, Wheezing ABD/GI: No: Symptoms Reported : No: Symptoms Reported Musculoskeletal: No: Symptoms Reported All Other Systems: Reviewed and Negative *Physical Exam - Vital Signs Last Vital Signs Temp Pulse Resp BP Pulse Ox 98.7 F 82 18 136/82 97 08/21/18 13:46 08/21/18 13:46 08/21/18 13:46 08/21/18 13:46 08/21/18 13:46 - Physical Exam General Appearance: Yes: Nourished, Appropriately Dressed, Apparent Distress, Mild Distress HEENT: positive: CARRIE, Normal ENT Inspection, TMs Normal, Pharynx Normal Neck: positive: Supple. negative: Tender, Lymphadenopathy (R), Lymphadenopathy (L) Respiratory/Chest: positive: Wheezing (expiratory/ ). negative: Lungs Clear, Normal Breath Sounds Gastrointestinal/Abdominal: positive: Soft. 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 *DC/Admit/Observation/Transfer Diagnosis at time of Disposition: Asthma exacerbation Qualifiers: Asthma severity: mild Asthma persistence: intermittent Qualified Code(s): J45.21 - Mild intermittent asthma with (acute) exacerbation - Discharge Dispostion Disposition: HOME Condition at time of disposition: Stable Decision to Admit order: No - Prescriptions Prescriptions: Albuterol 0.083% Nebulizer Meghna [Ventolin 0.083% Nebulizer Soln -] 1 neb NEB Q4H PRN #30 vial PRN Reason: Cough - Referrals Referrals: ON STAFF,NOT [Primary Care Provider] - - Patient Instructions Printed Discharge Instructions: Asthma -- Adult Additional Instructions: Rest, drink lots of fluids: Teas, water, soups, Pedialyte Saltwater gargles Steamy showers/seem to face break up mucus Avoid contact with others until fevers and cough resolved Lots of handwashing and good hygiene Continue [id number] medications for symptomatic relief Tylenol or Motrin for fever and pain Continue albuterol nebulizers every 4-6 hours for the next 2 days then as needed for continued cough Followup with private physician in one to 2 days Return to emergency department / pediatric hospital for worsened symptoms, fevers, dehydration - Post Discharge Activity Forms/Work/School Notes: Back to Work
== END 2018-08-21 14:28 | disposition home or self-care (01) ==
LOC: JERFT 13:37 → JER 13:37 → JERFT 14:28
PROC: 3E0F7GC Introduction of Other Therapeutic Substance into Respiratory Tract, Via Natural or Artificial Opening (ICD-10-PCS; principal; 2018-08-21)
PROC: 3E0F7GC Introduction of Other Therapeutic Substance into Respiratory Tract, Via Natural or Artificial Opening (ICD-10-PCS; 2018-08-21)
DX: J45.21 Mild intermittent asthma with (acute) exacerbation (principal); I12.0 Hypertensive chronic kidney disease with stage 5 chronic kidney disease or end stage renal disease; N18.6 End stage renal disease; N17.8 Other acute kidney failure; Z99.2 Dependence on renal dialysis
CPT/HCPCS: 94640; 99281-25

== ENCOUNTER 2019-08-04 11:32 | Emergency (ER) | payer OTHER ==
[2019-08-04 11:36] VITALS: BP 138/81; PULSE 80; TEMP 97.9; BMI 27.1
[2019-08-04] MEDS ORDERED: ALBUTEROL SO4 2.5/IPRATROPIUM 0.5 INH SOL 3 ML VIAL.NEB. NEB ONE ×2 (12:22→12:27)
--- NOTE | 2019-08-04 12:31 | PDOC ---
History of Present Illness - General Chief Complaint: Asthma Stated Complaint: ASTHMA Time Seen by Provider: 08/04/19 11:45 - History of Present Illness Initial Comments: 08/04/19 12:29 CHIEF COMPLAINT: asthma exacerbation HISTORY OF PRESENT ILLNESS: 28 yo M with hx of asthma presents to [facility] with asthma exacerbation. Patient reports that he has been wheezing for the past 2-3 days and ran out of his inhaler today. He denies any significant cough , denies fever, chills, vomiting, diarrhea. No recent travel or sick contacts. PAST MEDICAL HISTORY: Denies past medical history FAMILY HISTORY: Denies SOCIAL HISTORY:Denies tobacco, alcohol, illicit drug use. SURGICAL HISTORY: Denies ALLERGIES: No known drug allergies REVIEW OF SYSTEMS General/Constitutional: Denies fever or chills. Denies weakness, weight change. HEENT: Denies change in vision. Denies ear pain or discharge. Denies sore throat. Cardiovascular: Denies chest pain or shortness of breath. Respiratory: Wheezing x 2-3 days. Gastrointestinal: Denies nausea, vomiting, diarrhea or constipation. Denies rectal bleeding. Genitourinary: Denies dysuria, frequency, or change in urination. Musculoskeletal: Denies joint or muscle swelling or pain. Denies neck or back pain. Skin and breasts: Denies rash or easy bruising. Neurologic: Denies headache, vertigo, loss of consciousness, or loss of sensation. Psychiatric: Denies depression or anxiety. PHYSICAL EXAM General Appearance: Well-appearing, appropriately dressed. No apparent distress , no intoxication. HEENT: EOMI, PERRLA, normal ENT inspection, normal voice, TMs normal, pharynx normal. No conjunctival pallor. No photophobia, scleral icterus. Neck: Supple. Trachea midline. No tenderness, rigidity, carotid bruit, stridor , lymphadenopathy, or thyromegaly. Respiratory/Chest: Expiratory wheezing throughout No chest tenderness, respiratory distress, accessory muscle use. No crackles, rales, rhonchi, stridor , dullness. Cardiovascular: RRR. S1, S2. No JVD, murmur, bradycardia, tachycardia. Vascular Pulses: Dorsalis-Pedis (R): 2+, Dorsalis-Pedis (L): 2+ Gastrointestinal/Abdominal: Normal bowel sounds. Abdomen soft, non-distended. No tenderness or rebound tenderness. No organomegaly, pulsatile mass, guarding , hernia, hepatomegaly, splenomegaly. Lymphatic: No adenopathy, tenderness. Musculoskeletal/Extremities: Normal inspection. FROM of all extremities, normal capillary refill. Pelvis Stable. No CVA tenderness. No tenderness to extremities, pedal edema, swelling, erythema or deformity. Integumentary: Appropriate color, dry, warm. 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 Fully oriented, alert. Appropriate mood/affect. Motor strength 5/5. No appreciable EOM palsy, facial droop or sensory deficit. Past History - Past Medical History Allergies/Adverse Reactions: Allergies Allergy/AdvReac Type Severity Reaction Status Date / Time No Known Allergies Allergy Verified 08/04/19 11:36 Home Medications: Ambulatory Orders Sevelamer Carbonate [Renvela -] 800 mg PO ASDIR 03/22/15 Amlodipine Besylate 10 mg PO DAILY 06/11/17 Mycophenolate Sodium [Myfortic] 360 mg PO BID 08/21/18 Sodium Bicarbonate - 650 mg PO BID 08/21/18 Tacrolimus [Prograf] 6 mg PO DAILY 08/21/18 Albuterol Sulfate Inhaler - [Ventolin HFA Inhaler -] 1 - 2 inh PO ASDIR PRN #1 inhaler 08/04/19 Asthma: Yes COPD: No Dialysis: Yes () Disorders: Yes (esrd) HTN: Yes - Surgical History Abdominal Surgery: Yes (BLADDER SX A CHILD) - Immunization History Immunization Up to Date: Yes - Psycho Social/Smoking Cessation Hx Smoking Status: No Smoking History: Never smoked Have you smoked in the past 12 months: No Number of Cigarettes Smoked Daily: 0 Cigars Per Day: 0 Hx Alcohol Use: No Drug/Substance Use Hx: No Substance Use Type: None *Physical Exam - Vital Signs Last Vital Signs Temp Pulse Resp BP Pulse Ox 97.9 F 80 18 138/81 97 08/04/19 11:32 08/04/19 11:32 08/04/19 11:32 08/04/19 11:32 08/04/19 11:32 Medical Decision Making - Medical Decision Making 08/04/19 12:31 28 yo M with hx of asthma presents to [facility] with asthma exacerbation. -duoneb x 2 Discharge - Discharge Information Problems reviewed: Yes Clinical Impression/Diagnosis: Asthma Qualifiers: Asthma severity: moderate Asthma persistence: persistent Asthma complication type: with acute exacerbation Qualified Code(s): J45.41 - Moderate persistent asthma with (acute) exacerbation Condition: Stable Disposition: HOME - Admission No - Additional Discharge Information Prescriptions: Albuterol Sulfate Inhaler - [Ventolin HFA Inhaler -] 1 - 2 inh PO ASDIR PRN #1 inhaler PRN Reason: Short Of Breath/Wheezing - Follow up/Referral Referrals: Hailey Chang MD [Primary Care Provider] - - Patient Discharge Instructions Patient Printed Discharge Instructions: DI for Asthma -- Adult - Post Discharge Activity
== END 2019-08-04 12:57 | disposition home or self-care (01) ==
LOC: JERFT 11:32
PROC: 3E0F7GC Introduction of Other Therapeutic Substance into Respiratory Tract, Via Natural or Artificial Opening (ICD-10-PCS; principal; 2019-08-04)
DX: J45.41 Moderate persistent asthma with (acute) exacerbation (principal); I12.0 Hypertensive chronic kidney disease with stage 5 chronic kidney disease or end stage renal disease; N18.6 End stage renal disease; N17.8 Other acute kidney failure; Z99.2 Dependence on renal dialysis
CPT/HCPCS: 94640; 99281-25

== ENCOUNTER 2025-03-05 20:05 | Emergency (ER) | payer OTHER ==
[2025-03-05 20:10] VITALS: BP 134/82; PULSE 98; RESP 17; TEMP 98.3; BMI 28.1
[2025-03-05] MEDS ORDERED: DEXAMETHASONE 4 MG TABLET (FP) ONE (21:03)
[2025-03-05] MEDS ORDERED: PENICILLIN G BENZATHINE 1,200,000 UNIT/2 ML PFS IM ONE (21:04)
[2025-03-05] MEDS: DEXAMETHASONE SOD PHOSPHATE 10 MG/1 ML VIAL PO ONE (21:11)
[2025-03-05] MEDS: PENICILLIN G BENZATHINE 1,200,000 UNIT/2 ML PFS IM ONE (21:11)
== END 2025-03-05 21:41 | disposition home or self-care (01) ==
LOC: JER 20:05
DX: J03.80 Acute tonsillitis due to other specified organisms (principal); B96.89 Other specified bacterial agents as the cause of diseases classified elsewhere; R06.02 Shortness of breath
CPT/HCPCS: 99284-25; J1100